=== PATIENT | male | born 1980 | race Caucasian/White ===

== ENCOUNTER → 2019-01-13 | Outpatient (CLI) | payer BC ==
--- NOTE | 2019-01-13 12:37 | KCIC ---
EXAM: Brain MRI without contrast. HISTORY: Left leg numbness. Headaches. Family history of glioblastoma. TECHNIQUE: Multiplanar, multisequence magnetic resonance imaging of the brain was performed without contrast. COMPARISON: Head CT dated 02/12/2015. FINDINGS: There is no restricted diffusion to suggest acute or subacute infarction. There is no susceptibility effect to suggest hemorrhage. There is no mass effect or midline shift. There is no hydrocephalus. There are few tiny foci of T2/FLAIR hyperintensity within the bilateral cerebral white matter and left aurelio, the latter which is artifactual. There is mild paranasal sinus mucosal thickening. The orbits and mastoid air cells are unremarkable. There are normal flow voids within the cerebral vessels. There are few incidental dilated perivascular spaces. No calvarial lesion is seen. IMPRESSION: 1. No acute intracranial finding. 2. Few scattered foci of signal change within the bilateral frontal white matter. This is a nonspecific finding which can be seen with chronic small vessel disease as well as chronic migraine headaches. Given the patient age, the possibility of lesions due to demyelinating disease is not excluded. Electronically signed by: Dee Christensen MD (01/13/2019 12:34 PM) [place] [id number]
== END | disposition home or self-care (01) ==
LOC: KCIC MRI 11:29
PROVIDERS: ATTEND Psychiatry & Neurology Neurology with Special Qualifications in Child Neurology
DX: R90.82 White matter disease, unspecified (principal)
CPT/HCPCS: 70551

== ENCOUNTER → 2020-01-24 | Outpatient (CLI) | payer BC ==
[~2020-01-24] MED LIST: BUPIVACAINE MPF 0.25% 10 ML VIAL. ONE; IOHEXOL 180 MG/ML 10 ML VIAL. ONE; OMEG1CAP27 PO; TEST200V3 IM; methylPREDNISolone ACETATE 40 MG/ML VIAL. ONE; methylPREDNISolone ACETATE 80 MG/ML VIAL. ONE
--- NOTE | 2020-01-24 15:06 | PDOC2 ---
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 Reports he is caring stacks of books out of school multiple times to get his classroom cleared and had significant pain in his back starting that day and the day after patient reports since that time is been constant sharp aching in the low back itself without any radiation to the lower extremities. Patient reports that this became worse with time he is tried [id number] analgesics also ketorolac and hydrocodone which did help but only for short period time patient is been doing some physical therapy exercises doing some stretching and even inversion table but has been only very minimally helpful. Patient ports now the pain is 8 on a scale of 10 and rates his disability rating from 0-10 10 being the worst as a 6 with social activity 8 with recreation of family and home responsibilities it with occupation 7 with sexual behavior 3 with self-care and 0 with life support activities. Patient did have a MRI scan lumbar spine showing only mild degree of narrowing at the L5-S1 disc with a broad-based mild central disc bulge. Partial effacement of the ventral epidural space shown without compression of the thecal sac. PAST MEDICAL HISTORY: PMH: Positive only for cigarette smoking quit 2004 history of depression otherwise patient is been in good health. PREVIOUS SURGERIES: Past Surgical Hx: Kidney stone extraction, wisdom teeth extraction, carpal tunnel release CURRENT MEDICATIONS: Current Meds: Active Scripts Medications Dose Route/Sig Max Daily Dose Days Date Category Testosterone Cypionate 200 Mg/1 Ml Vial 1 Ml IM Q2WKS 01/24/20 Reported ALLERGIES; Allergies: Coded Allergies: tramadol (Verified Allergy, Severe, gina, 01/24/20) FAMILY HISTORY: Family Hx: Diabetes, heart disease SOCIAL HISTORY: Social Hx: Patient reports he quit smoking 2004 does not drink alcohol does not use any illegal illicit or recreational drugs is lives with 4 children in [facility]. Patient works as a instructor at [employer] REVIEW OF SYSTEMS: ROS: Review of systems is positive for those items mentioned in history of present illness, is complete full and well-documented on patient's chart. PHYSICAL EXAM: VS: Blood pressure is 138/81 pulse 73 respirations 16 temperature is 98.4 F height is 5 feet 10 inches weight is 210 pounds PE: PHYSICAL EXAMINATION: GENERAL: The patient is awake, alert, oriented, appropriate, very pleasant demeanor HEENT: Shows normocephalic, atraumatic. Extraocular movements are intact and symmetrical. Oral cavity: Mucous membranes moist and pink. Dentition is intact. NECK: Shows anterior throat supple without palpable lymphadenopathy noted. Swallow reflex symmetrical. CHEST: Shows normal on inspection. Breath sounds are clear bilaterally, no rales rhonchi or wheezes auscultated. HEART: Shows S1, S2 clear. No murmurs auscultated. ABDOMEN: Soft, nontender, nondistended. No palpable organomegaly is noted. No rebound or guarding demonstrated. BACK: Shows spine grossly in the midline. Normal-appearing cervical lordotic curvature. There is slightly increased thoracic kyphosis, some minor flattening of the lumbar lordotic curvature. Lumbar paraspinous muscles show symmetrical on inspection, on palpation shows some moderate tenderness diffusely throughout the upper, middle and lower distribution of the paraspinous muscles bilaterally but without specific trigger points, without radiation of pain. The patient has good rotational motion of the lumbar spine, both laterally as well as extension and flexion but with significant pain reported with extension greater than 10 degrees better with forward flexion of 45 degrees no significant pain with right or left rotation greater than 10 degrees. No tenderness over the spinous processes, sacrum or sacroiliac regions. EXTREMITIES: Lower extremities show deep tendon reflexes 2+ in the patellar and tendo calcaneus tendons. Motor exam is 5 on a scale of 5 with right dorsiflexion, extension, quadriceps and hamstring flexion and 5/5 on the left. Peripheral pulses are 1+ posterior tibial. No peripheral edema is noted bilaterally. Lower extremities are warm and dry to touch, equal in color and appearance. Straight leg raise noted to be negative on the right, left side is negative. Gaenslen's and Navin's maneuvers are negative as well. The patient is able to stand, stand on his toes without difficulty or loss of balance walks with a normal-appearing gait does not appear to favor the right or left lower extremity significantly.. SKIN: Shows warm and dry, good turgor. No edema. No sores, rashes or bruising throughout. IMPRESSION: Impression: This is a 39-year-old male with approximate 5-month history pain low back after lifting books at work. Consistent with facet mediated lumbar pain. History of depression History of cigarette smoking Options were discussed with the patient, including conservative medical management physical therapies and interventional techniques. Patient like to pursue interventional techniques. We discussed bilateral lumbar facet joint injections using descriptions as well as anatomical models to describe the procedure. Patient understands would like to proceed. Risks were then discussed including but not limited to bleeding infection possibility of epidural hematoma and subsequent neurological compromise dural puncture headache spinal cord and or nerve damage side effects of steroid medication and/guarding pain control. Patient understands and wishes to proceed return to clinic in approximately 2 weeks for follow-up was counseled as to return appointment activity level and side effects be aware. Under sterile prep and drape using C-arm fluoroscopic guidance AP and lateral and oblique views, bilateral L4-5 and L5-S1 facet joint injections, medications injected: 120 mg Depo-Medrol +4 cc 0.25% bupivacaine +2 cc contrast. Condition at discharge stable, patient tolerated the procedure well and had no complicat ions. MOOK DAWN MD Jan 24, 2020 15:06
== END | disposition home or self-care (01) ==
LOC: PNCL 13:11
PROVIDERS: ATTEND Anesthesiology
DX: M54.5 Low back pain (principal); F32.9 Major depressive disorder, single episode, unspecified; G47.30 Sleep apnea, unspecified; M51.37 Other intervertebral disc degeneration, lumbosacral region; Z87.891 Personal history of nicotine dependence; Z98.890 Other specified postprocedural states; Z83.3 Family history of diabetes mellitus; Z88.8 Allergy status to other drugs, medicaments and biological substances
CPT/HCPCS: 64635; 64636; J1030; J1040; J3490; Q9965

== ENCOUNTER → 2020-01-31 | Outpatient (CLI) | payer BC ==
[~2020-01-31] MED LIST changes: -BUPIVACAINE MPF 0.25% 10 ML VIAL. ONE; -IOHEXOL 180 MG/ML 10 ML VIAL. ONE; -OMEG1CAP27 PO; -methylPREDNISolone ACETATE 40 MG/ML VIAL. ONE; -methylPREDNISolone ACETATE 80 MG/ML VIAL. ONE
--- NOTE | 2020-02-02 11:15 | SLEEP ---
DATE OF STUDY: 02/01/2020 HOME SLEEP STUDY The patient is a 39-year-old who weighs 202 pounds with a BMI of 29.0. The patient's [place] score was 11. The patient underwent home sleep study performed at [facility]. Total recording time was 407 minutes. During the night study, the patient had 5 obstructive apneas, 13 mixed apneas, no central apneas and 11 hypopneas. The patient's AHI was 7.2 per hour. Nocturnal oximetry study revealed an average oxygen saturation of 94%; the lowest of 73%. Only 1.9 minutes were spent in oxygen saturation of less than 90%. IMPRESSION: 1. Mild obstructive sleep apnea. 2. No clinically significant nocturnal hypoxia. RECOMMENDATIONS: 1. If the patient is clinically symptomatic or has comorbid conditions, then consider doing a CPAP titration study. Alternate treatment option would include oral appliance. 2. Once the patient is treated, then follow up in 4-6 weeks to assess compliance and to document clinical improvement. 3. Weight loss is advised. 4. Avoid [employer] depressants. 5. Cautioned regarding driving until symptoms of sleep apnea resolve with above recommendation. RISHI VELARDE MD DR: ANTWAN/mine JOB#: [id number] / [id number] FORREST Dai
== END | disposition home or self-care (01) ==
LOC: RT 09:03
PROVIDERS: ATTEND Physician Assistant
DX: G47.33 Obstructive sleep apnea (adult) (pediatric) (principal); G47.19 Other hypersomnia
CPT/HCPCS: G0399

== ENCOUNTER → 2020-02-07 | Outpatient (CLI) | payer BC ==
[~2020-02-07] MED LIST changes: +BUPIVACAINE MPF 0.25% 10 ML VIAL. ONE; +IOHEXOL 180 MG/ML 10 ML VIAL. ONE; +OMEG1CAP27 PO; +methylPREDNISolone ACETATE 40 MG/ML VIAL. ONE; +methylPREDNISolone ACETATE 80 MG/ML VIAL. ONE
--- NOTE | 2020-02-07 15:19 | PDOC ---
Progress Note - Pain Clinic Date of Service: DOS: DATE: 02/07/20 TIME: 15:15 Diagnosis: Dx: Lumbar and lumbosacral spondylosis Lumbar degenerative disc disease History or Present Illness: HPI: 39-year male returns follow-up status post bilateral L4-5 and L5-S1 facet joint injections. Patient reports about 90% improvement for about a week and a half after the injections he was increasing his activity to greater ease and comfort sleeping better at night doing household activities work activities walking greater distances with greater ease and comfort travel with greater ease as well. Patient ports pain began to return after that slowly and gradually in the low back slightly more on the left than the right but only present with standing sitting for prolonged periods walking with more pain on the left worse with extension of the lumbar spine and axial loading of the low back. Patient reports no new motor or sensory deficit no new bowel or bladder incontinence or other complaints. Physical Exam: VS: Blood pressure is 144/96 pulse 76 respirations 16 temperature 98.1 F weight is 206 pounds PE: PHYSICAL EXAMINATION: GENERAL: The patient is awake, alert, oriented, appropriate, very pleasant demeanor HEENT: Shows normocephalic, atraumatic. Extraocular movements are intact and symmetrical. Oral cavity: Mucous membranes moist and pink. NECK: Shows anterior throat supple without palpable lymphadenopathy noted. Swallow reflex symmetrical. CHEST: Shows normal on inspection. Breath sounds are clear bilaterally. HEART: Shows S1, S2 clear. No murmurs auscultated. ABDOMEN: Soft, nontender, nondistended. No palpable organomegaly is noted. No rebound or guarding demonstrated. BACK: Shows spine grossly in the midline. Normal-appearing cervical lordotic curvature. There is slightly increased thoracic kyphosis, some minor flattening of the lumbar lordotic curvature. Lumbar paraspinous muscles show symmetrical on inspection, on palpation shows some moderate tenderness diffusely throughout the upper, middle and lower distribution of the paraspinous muscles bilaterally without specific trigger points, without radiation of pain. The patient has good rotational motion of the lumbar spine, both laterally as well as extension and flexion with increased pain left greater than right in the low back with extension lumbar spine better with forward flexion right and left lateral rotation show some mild tenderness bilaterally greater than 10 degrees right and left.. No tenderness over the spinous processes, sacrum or sacroiliac regions. EXTREMITIES: Lower extremities show deep tendon reflexes 2+ in the patellar and tendo calcaneus tendons. Motor exam is 5 on a scale of 5 with right dorsiflexion, extension, quadriceps and hamstring flexion and 5/5 on the left. Peripheral pulses are 1+ posterior tibial. [] peripheral edema is noted bilaterally. Lower extremities are warm and dry to touch, equal in color and appearance. SKIN: Shows warm and dry, good turgor. No edema. No sores, rashes or bruising throughout. Procedure: Procedure: Options were discussed with the patient. Patient's old chart was reviewed his his current medication regimen updated current review of systems updated today as well. We will proceed with repeat L4-5 and L5-S1 bilateral facet joint injections today with fluoroscopic guidance. Risks were discussed including but not limited to bleeding infection possibility of epidural hematoma subsequent neurological compromise dural puncture headache spinal cord and or nerve damage side effects of steroid medication and poor results regarding pain control. Patient understands wished to proceed. Patient return to clinic in approximate 2 weeks for follow-up. Patient was counseled as to return appointment activity level and side effects to be aware of. Medication Injected: Med Injected: Under sterile prep and drape using C-arm fluoroscopic guidance AP and lateral and oblique views, bilateral L4-5 and L5-S1 facet joint injections, medications injected: 120 mg Depo-Medrol +4 cc 0.25% bupivacaine +2 cc contrast. Condition at discharge stable patient tolerated the procedure well and no complications. Condition at Discharge: Condition at Discharge: Condition at discharge is stable patient tolerated procedure well had no complications. MOOK DAWN MD Feb 07, 2020 15:18
== END | disposition home or self-care (01) ==
LOC: PNCL 14:08
PROVIDERS: ATTEND Anesthesiology
DX: M51.36 Other intervertebral disc degeneration, lumbar region (principal); M47.816 Spondylosis without myelopathy or radiculopathy, lumbar region; M47.817 Spondylosis without myelopathy or radiculopathy, lumbosacral region; G47.30 Sleep apnea, unspecified; Z79.899 Other long term (current) drug therapy; Z83.3 Family history of diabetes mellitus
CPT/HCPCS: 64635; 64636; J1030; J1040; J3490; Q9965

== ENCOUNTER → 2020-02-21 | Outpatient (CLI) | payer BC ==
--- NOTE | 2020-02-21 08:27 | PDOC ---
Progress Note - Pain Clinic Date of Service: DOS: DATE: 02/21/20 TIME: 08:23 Diagnosis: Dx: Lumbar and lumbosacral spondylosis with lumbar degenerative disc disease History or Present Illness: HPI: 39-year-old male returns follow-up status post bilateral lumbar facet joint injections x2. Patient was about 90% improvement after the first injection for about 1-1/2 weeks second injection was not as significantly pain relieving. Patient reports still some pain in the low back worse on the left than the right but present bilaterally with walking standing changing positions stretching extension of the lumbar spine axial loading of the low back patient reports that initially was like a night and day difference but now the pain is returned fairly significantly. Patient reports no new motor or sensory deficits rates the pain is a 7 on a scale of 10 is worse over the past week for an average to its least is a 4 today. Patient reports is aching and dull also sharp at times again worse on the left than the right but can be constant with activity twisting or bending especially with standing and extension. Reports it awakens him about every once every 5-6 hours otherwise is sleeping fairly well better with being off his feet. Patient reports no new motor or sensory deficits no new bowel or bladder incontinence or other complaints. Physical Exam: VS: Blood pressure is 150/101 pulse 59 respiration 16 temperature 98.0 F weight is 204 pounds PE: PHYSICAL EXAMINATION: GENERAL: The patient is awake, alert, oriented, appropriate, very pleasant demeanor HEENT: Shows normocephalic, atraumatic. Extraocular movements are intact and symmetrical. Oral cavity: Mucous membranes moist and pink. NECK: Shows anterior throat supple without palpable lymphadenopathy noted. Swallow reflex symmetrical. CHEST: Shows normal on inspection. Breath sounds are clear bilaterally. HEART: Shows S1, S2 clear. No murmurs auscultated. ABDOMEN: Soft, nontender, nondistended. No palpable organomegaly is noted. No rebound or guarding demonstrated. BACK: Shows spine grossly in the midline. Normal-appearing cervical lordotic curvature. There is slightly increased thoracic kyphosis, some minor flattening of the lumbar lordotic curvature. Lumbar paraspinous muscles show symmetrical on inspection, on palpation shows some moderate tenderness diffusely throughout the upper, middle and lower distribution of the paraspinous muscles bilaterally and also into the lower thoracic paraspinous musculature, firm and tender, but without specific trigger points, without radiation of pain. The patient has good rotational motion of the lumbar spine, with moderate tenderness with right and moderate to severe tenderness with left lateral rotation greater than 10 degrees with some significant tenderness bilaterally with extension greater than 10 degrees decreased with forward flexion of 45 degrees. No tenderness over the spinous processes, sacrum or sacroiliac regions. EXTREMITIES: Lower extremities show deep tendon reflexes 2+ in the patellar and tendo calcaneus tendons. Motor exam is 5 on a scale of 5 with right dorsiflexion, extension, quadriceps and hamstring flexion and 5/5 on the left. Peripheral pulses are 1 posterior tibial. No peripheral edema is noted bilaterally. SKIN: Shows warm and dry, good turgor. No edema. No sores, rashes or bruising throughout. Procedure: Procedure: Options were discussed with the patient. Patient will chart was reviewed his his current medication regimen updated current review of systems updated today as well. We will proceed with bilateral L4-5 and L5-S1 medial branch facet blocks with fluoroscopic guidance. Risks were discussed including but not limited to: Bleeding, infection, possibility of epidural hematoma and subsequent neurological compromise, dural puncture, headaches, spinal cord and/or nerve damage, side effects of steroid medication, and poor results regarding pain control. Patient understands wished to proceed. Patient return to clinic in approximate 2 weeks for follow-up. Was counseled as to activity level as well as side effects to be aware of. Medication Injected: Med Injected: Under sterile prep and drape using C-arm fluoroscopic guidance AP and lateral an d oblique views, bilateral L4-5 and L5-S1 facet joint injections, medications injected: 120 mg Depo-Medrol +4 cc 0.25% bupivacaine +2 cc contrast. Condition at discharge stable patient tolerated the procedure well and no complications. Condition at Discharge: Condition at Discharge: Condition at discharge is stable patient tolerated procedure well had no complications. MOOK DAWN MD Feb 21, 2020 08:27
== END | disposition home or self-care (01) ==
LOC: PNCL 07:35
PROVIDERS: ATTEND Anesthesiology
DX: M47.816 Spondylosis without myelopathy or radiculopathy, lumbar region (principal); M47.817 Spondylosis without myelopathy or radiculopathy, lumbosacral region; M51.36 Other intervertebral disc degeneration, lumbar region; G47.33 Obstructive sleep apnea (adult) (pediatric); Z88.8 Allergy status to other drugs, medicaments and biological substances; Z79.899 Other long term (current) drug therapy
CPT/HCPCS: 64635; 64636; J1030; J1040; J3490; Q9965

== ENCOUNTER → 2020-03-22 | Outpatient (CLI) | payer BC ==
[~2020-03-22] MED LIST changes: -IOHEXOL 180 MG/ML 10 ML VIAL. ONE; +LIDOCAINE 1% PF 2 ML VIAL. ONE; +LIDOCAINE 2% PF 5 ML VIAL. ONE
--- NOTE | 2020-03-22 14:47 | PDOC ---
Progress Note - Pain Clinic Date of Service: DOS: DATE: 03/22/20 TIME: 14:42 Diagnosis: Dx: Lumbar and lumbosacral spondylosis with low back pain and lumbar degenerative disc disease History or Present Illness: HPI: 39-year-old male returns follow-up status post bilateral L4-5 and L5-S1 facet joint medial branch blocks with good results approximately 90% improvement with 2 previous diagnostic injections. Patient reports pain is been decreased by that amount for approximately 2 weeks now is about 75% improved and we scheduled him for radiofrequency ablation today and he would like to proceed. Patient reports still pain in the low back itself slightly worse on the left than the right but present bilaterally worse with walking standing changing positions is aching and radiating across the back but not into the lower extremities. Patient reports is an 8 on scale 10 is worse over the past week 6 on average 1 to its least and is a 5 today. Patient reports no new motor or sensory deficits no new bowel or bladder incontinence or other complaints. Physical Exam: VS: Blood pressure is 170/105 pulse 140 respiration 16 temperature 98.4 F weight is 203 pounds PE: PHYSICAL EXAMINATION: GENERAL: The patient is awake, alert, oriented, appropriate, very pleasant demeanor HEENT: Shows normocephalic, atraumatic. Extraocular movements are intact and symmetrical NECK: Shows anterior throat supple without palpable lymphadenopathy noted. Swallow reflex symmetrical. CHEST: Shows normal on inspection. Breath sounds are clear bilaterally. HEART: Shows S1, S2 clear. No murmurs auscultated. ABDOMEN: Soft, nontender, nondistended. No palpable organomegaly is noted. No rebound or guarding demonstrated. BACK: Shows spine grossly in the midline. Normal-appearing cervical lordotic curvature. There is slightly increased thoracic kyphosis, some minor flattening of the lumbar lordotic curvature. Lumbar paraspinous muscles show symmetrical on inspection, on palpation shows some moderate tenderness diffusely throughout the upper, middle and lower distribution of the paraspinous muscles bilaterally and also into the lower thoracic paraspinous musculature, firm and tender, but without specific trigger points, without radiation of pain. The patient has good rotational motion of the lumbar spine, with moderate tenderness with extension and axial loading of the lumbar spine bilaterally better with forward flexion 45 degrees right and left lateral rotation at 10 degrees causes increased discomfort as well greater on the left than the right. No tenderness over the spinous processes, sacrum or sacroiliac regions. EXTREMITIES: Lower extremities show deep tendon reflexes 2+ in the patellar and tendo calcaneus tendons. Motor exam is 5 on a scale of 5 with right dorsiflexion, extension, quadriceps and hamstring flexion and 5/5 on the left. Peripheral pulses are 1+ posterior tibial. No peripheral edema is noted bilaterally. Lower extremities are warm and dry to touch, equal in color and appearance. SKIN: Shows warm and dry, good turgor. No edema. No sores, rashes or bruising throughout. Procedure: Procedure: Options were discussed with patient. Patient's old chart was reviewed his his current medication regimen updated current review of systems updated today as well. We will proceed with a bilateral L4-5 and L5-S1 radiofrequency ablation of the medial branches. Risks were discussed including but not limited to: Bleeding, infection, possibility of epidural hematoma and subsequent neurological compromise, dural puncture, headaches, spinal cord and/or nerve damage, side effects of steroid medication, possible thermal damage to the surrounding tissues including motor nerves and permanent ischemic damage, and poor results regarding pain control. Patient understands wished to proceed. Patient return to clinic in approximately 3 weeks for follow-up was counseled as to return appointment activity level and side effects to be aware of. Medication Injected: Med Injected: Under sterile prep and drape patient in prone position using C-arm fluoroscopic guidance patient's lumbar spine was visualized in both AP oblique and lateral views using 1% lidocaine to topically anesthetize the areas overlying the L3-4, L4-5 and L5-S1 facet joints at the point of the medial branches. Using a 22- gauge insulated radiofrequency needle with curved tips and stylette, the needles were advanced to contact the region of the facet with the medial branch targets. This was repeated at the L3-4 L4-5 and L5-S1 levels. Stylette was removed and using radiofrequency probe inserted into each needle individually at each level and then motor tested with no motor stimulation of the lower extremity. Patient did have some multifidus musculature contraction in the lumbar spine only but without radiation. At this time 1 cc of 2% lidocaine was then injected in each needle after motor testing but prior to radiofrequency ablation. Needle position was confirmed continuously throughout the radiofrequency ablation with both AP oblique and lateral views at each level. At this time radiofrequency ablation was carried out each level for 60 seconds at 80 C x 2 at each level with the tip of the needle turned 90 degrees after the first 60 seconds and then subsequent 60 seconds of radiofrequency ablation. Once radiofrequency ablation was completed solution containing 0.25% bupivacaine 1 cc and 20 mg Depo-Medrol was injected each level. [place] were then withdrawn. The procedure was repeated for the contralateral side as described as well. Patient had no paresthesias throughout the procedure, no radiation of pain into the lower extremities, and no lower extremity motor response with motor testing bilaterally. Please see radiofrequency flowsheet for levels, temperatures, impedance, etc. Condition at Discharge: Condition at Discharge: Condition at discharge is stable patient tolerated procedure well and had no complications. MOOK DAWN MD Mar 22, 2020 14:47
== END ==
LOC: PNCL 12:59
PROVIDERS: ATTEND Anesthesiology
DX: M47.816 Spondylosis without myelopathy or radiculopathy, lumbar region (principal); M47.817 Spondylosis without myelopathy or radiculopathy, lumbosacral region; M51.36 Other intervertebral disc degeneration, lumbar region; G47.33 Obstructive sleep apnea (adult) (pediatric); Z88.8 Allergy status to other drugs, medicaments and biological substances; Z79.899 Other long term (current) drug therapy; Z83.3 Family history of diabetes mellitus
CPT/HCPCS: 64635; 64636; J1030; J1040; J3490